=== PATIENT | male | born 1950 | race Two or more races ===

== ENCOUNTER 2018-10-05 16:38 | Emergency (ER) | payer MEDICARE, MEDICAID ==
[~2018-10-05] VITALS: Ht 177.8 cm; Wt 62.1 kg
[2018-10-05] MEDS ORDERED: SODIUM CHLORIDE 0.9% 1,000 ML IV ONE (17:41)
[2018-10-05 18:13] LABS: Basophils # (auto) 0 uL; Eosinophils # (auto) 0 uL; Lymphocytes # (auto) 0.4 uL; Monocytes # (auto) 0.3 uL; Neutrophils # (auto) 5.8 uL
[2018-10-05 18:15] LABS: Basophils % (auto) 0.3 % (0.0-2.0); Eosinophils % (auto) 0.1 % (0.0-7.0); Hematocrit 35.6 % (41.0-53.0); Hemoglobin 11.6 g/dL (13.5-17.5); Lymphocytes % (auto) 6.4 % (10.0-50.0); Mean Corpuscular Hemoglobin 25.5 pg (28.0-32.0); Mean Corpuscular Hgb Conc. 32.6 g/dL (32.0-36.0); Mean Corpuscular Volume 78.3 fL (80.0-100.0); Neutrophils % (auto) 89.2 % (37.0-80.0); Platelet Count (auto) 404 10^3/uL (140-450); Red Blood Cells 4.55 10^6/uL (4.5-5.90); Red Cell Distribution Width 16.2 % (11.8-14.3); White Blood Cell 6.4 10^3/uL (4.4-10.8)
[2018-10-05 18:27] LABS: INR 0.97 (0.9-1.15); Partial Thromboplastin Time 28.5 sec (23.64-32.05)
[2018-10-05 18:31] LABS: Alanine Aminotransferase 42 U/L (16-61); Albumin 2.2 g/dL (3.4-5.0); Anion Gap 11 (5-15); Aspartate Aminotransferase 27 U/L (15-37); Blood Urea Nitrogen 37 mg/dL (7-18); Calcium 10.8 mg/dL (8.5-10.1); Carbon Dioxide 27 mmol/L (21-32); Chloride 101 mmol/L (98-107); GFR African American 55 mL/min; GFR Non-African American 46 mL/min; Glucose 123 mg/dL (74-106); Magnesium 2.2 mg/dL (1.6-2.6); Potassium 3.9 mmol/L (3.5-5.1); Sodium 139 mmol/L (136-145)
[2018-10-05 18:36] LABS: Alkaline Phosphatase 297 U/L (45-117); Bilirubin, Total 0.3 mg/dL (0.2-1.0); Creatine Kinase IFCC 17 U/L (39-308); Total Protein 6.2 g/dL (6.4-8.2)
[2018-10-05] MEDS ORDERED: VANCOMYCIN 1GM/250ML 250 ML IV ONE (19:30)
[2018-10-05 19:56] LABS: Urine Bacteria FEW /hpf (None Seen); Urine Blood Negative /uL (Negative); Urine Mucus FEW (None Seen); Urine Specific Gravity 1.009 (1.001-1.035); Urine WBC 13 /hpf (0 - 3)
[2018-10-05 20:35] LABS: Lactic Acid w/Reflex 2.1 mmol/L (0.4-2.0)
[2018-10-05] MEDS ORDERED: ACETAMINOPHEN 325 MG TAB PO ONE (22:13)
[2018-10-05 22:42] VITALS: BP 106/62
== END 2018-10-05 23:01 | disposition short-term general hospital (02) ==
LOC: ER 16:55
DX: M46.46 Discitis, unspecified, lumbar region (principal)
CPT/HCPCS: 36415; 74176; 80053; 81001; 82550; 83605; 83735; 84484; 85025; 85610; 85730; 87040; 93005; 94761; 96365; 99285; J3370; J7030

== ENCOUNTER 2018-12-16 08:49 | Emergency (ER) | payer MEDICARE, MEDICAID ==
[~2018-12-16] VITALS: Ht 180.3 cm; Wt 47.6 kg
[2018-12-16 09:02] VITALS: BP 108/61
[2018-12-16] MEDS ORDERED: diphenhdrAMINE HCL 50 MG/1 ML VL IM ONE (10:45)
== END 2018-12-16 11:08 | disposition home or self-care (01) ==
LOC: ER 08:49
DX: L23.9 Allergic contact dermatitis, unspecified cause (principal)
CPT/HCPCS: 96372; 99283; J1200